=== PATIENT | female | born 1945 | race Caucasian/White ===

== ENCOUNTER → 2019-01-26 | Day surgery (SDC) | payer MEDICARE ==
[2019-01-22 11:15] LABS: BASOPHILS # (AUTO) 0.04 x10^3/uL (0-0.1); BASOPHILS % (AUTO) 1 % (0-1); EOSINOPHILS # (AUTO) 0.07 x10^3/uL (0-0.4); EOSINOPHILS % (AUTO) 1 % (1-7); LYMPHOCYTES # (AUTO) 2.39 x10^3/uL (1-3.4); LYMPHOCYTES % (AUTO) 40 % (22-44); MD NO; MEAN CORPUSCULAR HEMOGLOBIN 33.8 pg (27.0-34.8); MEAN CORPUSCULAR HGB CONC 33.1 g/dL (32.4-35.8); MEAN CORPUSCULAR VOLUME 102.1 fL (80-100); MEAN PLATELET VOLUME 9.4 fL (7.4-10.4); MONOCYTES # (AUTO) 0.31 x10^3/uL (0.2-0.8); MONOCYTES % (AUTO) 5 % (2-9); NEUTROPHILS # (AUTO) 3.21 x10^3/uL (1.8-6.8); NEUTROPHILS % (AUTO) 53 % (42-75); PLATELET COUNT 239 x10^3/uL (130-400); RED BLOOD COUNT 4.15 x10^6/uL (3.82-5.3); RED CELL DISTRIBUTION WIDTH 14.9 % (9.6-15.2)
[2019-01-22 11:25] LABS: ALANINE AMINOTRANSFERASE 16 U/L (12-78); ALBUMIN 3.8 g/dL (3.4-5.0); ANION GAP 3 mmol/L (5-15); CALCIUM 9.5 mg/dL (8.5-10.1); CHLORIDE 107 mmol/L (98-107); CREATININE 0.68 mg/dL (0.55-1.02)
[2019-01-22 11:27] LABS: ALKALINE PHOSPHATASE 83 U/L (45-117); BILIRUBIN,TOTAL 0.4 mg/dL (0.2-1.0); TOTAL PROTEIN 8.6 g/dL (6.4-8.2)
[2019-01-25 05:48] VITALS: BP 115/62
[2019-01-25] MEDS: FENTANYL PF 100 MCG/2ML IV PRN ×4 (08:45→09:25)
[~2019-01-26] VITALS: Ht 167.6 cm; Wt 61.0 kg
[~2019-01-26] MED LIST: ACETAMINOPHEN 500 MG TABLET ONE; ACETAMINOPHEN 500 MG TABLET PO ONE; ALBUTEROL/IPRATROPIUM 2.5MG/0.5MG, 3 ML NPPB PRN; ALEN70TA6 PO; BUPIVACAINE/PF 0.5% ONE; CEFAZOLIN 1,000 MG ONE; DEXAMETHASONE 4 MG/ML, 1ML ONE; DIGO250T PO; EPINEPHRINE 1 MG/ML, 1ML INFIL ONE; FENTANYL PF 100 MCG/2ML ONE; FENTANYL PF 250 MCG/5ML ONE; GABAPENTIN 300 MG CAPSULE ONE; GABAPENTIN 300 MG CAPSULE PO ONE; HYDROmorphone 2 MG/ML, 1ML IVPush PRN; ISOSULFAN BLUE 10 MG/ML, 5ML IV ONE; LACTATED RINGERS 1,000 ML IV SCH; LEVO100T5 PO; LIDOCAINE GEL 2%, 5ML ONE; LIDOCAINE-MPF 1%, 5ML ONE; MEPERIDINE/PF 25MG/ML,1ML IVPush PRN; METOPROLOL 1 MG/ML, 5ML IV PRN; MIDAZOLAM 1 MG/ML, 2ML IV PRN; MULT1TAB60 PO; ONDANSETRON 2MG/ML, 2ML IV PRN; ONDANSETRON 2MG/ML, 2ML ONE; ONDANSETRON ODT 8 MG ONE; ONDANSETRON ODT 8 MG PO ONE; OXYcodone 5 MG/5 ML ORAL.SOL UDC ONE; OXYcodone 5 MG/5 ML ORAL.SOL UDC PO PRN; PHENYLEPHRINE 10 MG/ML ONE; PROMETHAZINE 25 MG/ML, 1ML IV PRN; PROPOFOL 10 MG/ML, 20ML ONE; SCOPOLAMINE PATCH, 1.5MG PATCH.TD72 TD ONE; VALA500T PO; hydrALAzine 20 MG/ML, 1ML IV PRN
== END | disposition home or self-care (01) ==
LOC: MERGE 01-25 07:00 → OUT 09:00
PROVIDERS: ATTEND Surgery
DX: C50.812 Malignant neoplasm of overlapping sites of left female breast (principal); I48.0 Paroxysmal atrial fibrillation; M81.0 Age-related osteoporosis without current pathological fracture; F41.9 Anxiety disorder, unspecified; Z79.890 Hormone replacement therapy; Z79.899 Other long term (current) drug therapy; Z87.891 Personal history of nicotine dependence; Z98.890 Other specified postprocedural states; Z80.0 Family history of malignant neoplasm of digestive organs
CPT/HCPCS: 19301; 36415; 38525; 38900; 80053; 85025; 88307; 88329; 88333; 93005; J0171; J0690; J1100; J2370; J2405; J2704; J3010; J7120; Q0162

== ENCOUNTER → 2019-03-08 | Outpatient (CLI) | payer MEDICARE ==
[~2019-03-08] MED LIST changes: -ACETAMINOPHEN 500 MG TABLET ONE; -ACETAMINOPHEN 500 MG TABLET PO ONE; -ALBUTEROL/IPRATROPIUM 2.5MG/0.5MG, 3 ML NPPB PRN; -BUPIVACAINE/PF 0.5% ONE; -CEFAZOLIN 1,000 MG ONE; -DEXAMETHASONE 4 MG/ML, 1ML ONE; -EPINEPHRINE 1 MG/ML, 1ML INFIL ONE; -FENTANYL PF 100 MCG/2ML ONE; -FENTANYL PF 250 MCG/5ML ONE; -GABAPENTIN 300 MG CAPSULE ONE; -GABAPENTIN 300 MG CAPSULE PO ONE; -HYDROmorphone 2 MG/ML, 1ML IVPush PRN; -ISOSULFAN BLUE 10 MG/ML, 5ML IV ONE; -LACTATED RINGERS 1,000 ML IV SCH; -LIDOCAINE GEL 2%, 5ML ONE; -LIDOCAINE-MPF 1%, 5ML ONE; -MEPERIDINE/PF 25MG/ML,1ML IVPush PRN; -METOPROLOL 1 MG/ML, 5ML IV PRN; -MIDAZOLAM 1 MG/ML, 2ML IV PRN; -ONDANSETRON 2MG/ML, 2ML IV PRN; -ONDANSETRON 2MG/ML, 2ML ONE; -ONDANSETRON ODT 8 MG ONE; -ONDANSETRON ODT 8 MG PO ONE; -OXYcodone 5 MG/5 ML ORAL.SOL UDC ONE; -OXYcodone 5 MG/5 ML ORAL.SOL UDC PO PRN; -PHENYLEPHRINE 10 MG/ML ONE; -PROMETHAZINE 25 MG/ML, 1ML IV PRN; -PROPOFOL 10 MG/ML, 20ML ONE; -SCOPOLAMINE PATCH, 1.5MG PATCH.TD72 TD ONE; -hydrALAzine 20 MG/ML, 1ML IV PRN
== END | disposition home or self-care (01) ==
LOC: ROC 07:31
PROVIDERS: ATTEND Radiology Radiation Oncology
DX: Z08 Encounter for follow-up examination after completed treatment for malignant neoplasm (principal); E03.9 Hypothyroidism, unspecified; Z78.0 Asymptomatic menopausal state; Z90.12 Acquired absence of left breast and nipple; Z79.899 Other long term (current) drug therapy; Z87.891 Personal history of nicotine dependence; Z85.3 Personal history of malignant neoplasm of breast
CPT/HCPCS: G0463

== ENCOUNTER → 2019-05-21 | Outpatient (CLI) | payer MEDICARE ==
[~2019-05-21] MED LIST changes: -DIGO250T PO; +DIGO250T3 PO; -VALA500T PO; +VALA500T8 PO
== END | disposition home or self-care (01) ==
LOC: EDSTATUS 04-29 20:00 → ROC 07:30
PROVIDERS: ATTEND Radiology Radiation Oncology
DX: C50.412 Malignant neoplasm of upper-outer quadrant of left female breast (principal)
CPT/HCPCS: G0463